=== PATIENT | female | born 1990 | race Two or more races ===

== ENCOUNTER 2019-05-09 13:54 | Emergency (ER) | payer OTHER ==
[~2019-05-09] VITALS: Ht 160 cm; Wt 90.7 kg
[~2019-05-09 13:54] MED LIST: KETO10TA2 PO; PROVENTIL0.5 ML/2.5 IH
== END 2019-05-09 18:29 | disposition home or self-care (01) ==
LOC: ER 13:54
DX: O03.4 Incomplete spontaneous abortion without complication (principal); R10.2 Pelvic and perineal pain